=== PATIENT | female | born 1955 | race Hispanic/Latino ===

== ENCOUNTER 2017-11-01 22:25 | Emergency (ER) | payer BC, OTHER ==
[2017-11-01] MEDS ORDERED: TDAP Vaccine 0.5 mL Syr IM ONE (22:43)
--- NOTE | 2017-11-01 22:43 | ED PDOC ---
Arrival/HPI - General Time Seen by Provider: 11/01/17 22:31 Historian: Patient - History of Present Illness Narrative History of Present Illness (Text): 11/01/17 22:35 62 y/o female, pmh including foot fracture, nkda, last tetanus doesn't remember , c/o rt. elbow and lt. knee pain x 4 hours. Pt. stated that she tripped over the curb, landed on the lt. knee with abrasion and been having pain, landed on the rt. elbow as well with no skin injury, no head or neck injury, no LOC, able to recall the whole event, no night sweat, no rash, no urinary or bowel incontinence or retention, no other medical or psychological complaints. Past Medical History - Provider Review Nursing Documentation Reviewed: Yes - Infectious Disease Hx of Infectious Diseases: None - Cardiac Hx Cardiac Disorders: No - Pulmonary Hx Respiratory Disorders: No - Neurological Hx Neurological Disorder: No - HEENT Hx HEENT Disorder: No - Renal Hx Renal Disorder: No - Endocrine/Metabolic Hx Endocrine Disorders: No - Hematological/Oncological Hx Blood Disorders: No - Integumentary Hx Dermatological Disorder: No - Musculoskeletal/Rheumatological Hx Musculoskeletal Disorders: No - Gastrointestinal Hx Gastrointestinal Disorders: No - Genitourinary/Gynecological Hx Genitourinary Disorders: No - Psychiatric Hx Anxiety: Yes Hx Substance Use: No - Surgical History Hx Section: Yes - Anesthesia Hx Anesthesia: No Hx Anesthesia Reactions: No Hx Malignant Hyperthermia: No Family/Social History - Physician Review Nursing Documentation Reviewed: Yes Family/Social History: Unknown Family HX Smoking Status: Former Smoker Hx Alcohol Use: No Hx Substance Use: No Allergies/Home Meds Allergies/Adverse Reactions: Allergies No Known Allergies Allergy (Verified 11/01/17 22:38) Review of Systems - Review of Systems Constitutional: absent: Fatigue, Fevers Eyes: absent: Vision Changes ENT: absent: Hearing Changes Respiratory: absent: SOB, Cough Cardiovascular: absent: Chest Pain Gastrointestinal: absent: Abdominal Pain, Nausea, Vomiting Musculoskeletal: Arthralgias, Joint Swelling. absent: Back Pain, Neck Pain, Myalgias Skin: Other (+abrasion). absent: Rash, Pruritis, Laceration, Abscess, Ulcer, Cellulitis Physical Exam Vital Signs Reviewed: Yes Vital Signs Temp Pulse Resp BP Pulse Ox 11/01/17 22:39 98.6 F 88 18 156/88 H 100 Temperature: Afebrile Blood Pressure: Hypertensive Pulse: Regular Respiratory Rate: Normal Appearance: Positive for: Well-Appearing, Non-Toxic, Comfortable Pain Distress: Mild Mental Status: Positive for: Alert and Oriented X 3 - Systems Exam Head: Present: Atraumatic, Normocephalic Pupils: Present: PERRL Extroacular Muscles: Present: EOMI Conjunctiva: Present: Normal Mouth: Present: Moist Mucous Membranes Neck: Present: Normal Range of Motion, Trachea Midline. No: MIDLINE TENDERNESS , Paraspinal Tenderness, Lymphadenopathy Respiratory/Chest: Present: Clear to Auscultation, Good Air Exchange. No: Respiratory Distress, Accessory Muscle Use Cardiovascular: Present: Regular Rate and Rhythm, Normal S1, S2. No: Murmurs Abdomen: Present: Normal Bowel Sounds. No: Tenderness, Distention, Peritoneal Signs, Rebound, Guarding Back: Present: Normal Inspection Upper Extremity: Present: Normal Inspection, Other (Rt. elbow: +ttp on the radial head region, no swelling, skin intact, no laceration or abrasion, FROM without limitation, sensation intact, motor 5/5, +radial pulse, capillary refill < 2 seconds, neurovascular intact. ). No: Cyanosis, Edema Lower Extremity: Present: Normal Inspection, Other (Bilateral knee: +ttp and mild swelling to the lt. anterior knee, bilateral superficial abrasion approx. 2cm diameter noted on the knee joint, negative meghan and perez, FROM without limitation, sensation intact, motor 5/5. ). No: Edema Neurological: Present: GCS=15, CN II-XII Intact, Speech Normal Skin: Present: Warm, Dry, Normal Color. No: Rashes Psychiatric: Present: Alert, Oriented x 3, Normal Insight, Normal Concentration Medical Decision Making ED Course and Treatment: 11/01/17 22:53 -Xrays -Tdap -Pt. refused pain med -Wound irrigated with normal saline, clean with betadine, bacitracin and gauze dressing, dg wrap, crutches. 11/02/17 00:05 -Lt. knee xray show no fracture or dislocation -Rt. elbow xray show non-displaced fracture on the radial head and clinical it is tender on the radial head. -Long arm splint applied by me with neurovascular intact. -Discharge home with long arm splint, sling, dg wrap, crutches/cane , naproxen , bacitracin oinment, ice compression, follow up with your own pmd and orthopedic within 2 days, return to the ER for any new or worsening signs or symptoms. - RAD Interpretation Radiology Orders: 11/01/17 22:43 ELBOW RIGHT 3 VIEWS ROUTINE [RAD] Stat KNEE WITH PATELLA LEFT 3 VIEW [RAD] Stat Rt. elbow: FINDINGS: Bones/joints: Apparent lucency projected over radial head. No dislocation. Joint effusion. Soft tissues: Unremarkable. IMPRESSION: 1. Findings concerning for radial head fracture. Consider CT for confirmation. Thank you for allowing us to participate in the care of your patient. Dictated and Authenticated by: Bruno Brothers MD 11/01/2017 11:58 PM Eastern Time ([place] & [place]) Lt. knee xray: no acute fracture/dislocation, degenerative joint changes noted. 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 Disposition/Present on Arrival - Present on Arrival Any Indicators Present on Arrival: No History of DVT/PE: No History of Uncontrolled Diabetes: No Urinary Catheter: No History of Decub. Ulcer: No History Surgical Site Infection Following: None - Disposition Have Diagnosis and Disposition been Completed?: Yes Diagnosis: Abrasion, Knee injury, Elbow fracture Disposition: HOME/ ROUTINE Disposition Time: 22:55 Patient Plan: Discharge Condition: GOOD Additional Instructions: -Discharge home with dg wrap, crutches, naproxen, bacitracin oinment, ice compression, follow up with your own pmd and orthopedic within 2 days, return to the ER for any new or worsening signs or symptoms. Prescriptions: Bacitracin Ointment [Bacitracin] 1 appful TOP BID #15 g Naproxen 500 mg PO BID PRN #24 tablet PRN Reason: Other Referrals: Beverly Freeman MD [Staff Provider] - Follow up with primary [facility] [place] [Outside] - Follow up with primary Forms: WORK NOTE
[2017-11-01 22:46] VITALS: BP 156/88; PULSE 88; RESP 18; TEMP 98.6; O2SAT 100; BMI 28.1
--- NOTE | 2017-11-01 23:58 | RAD ---
EXAM: XR Right Elbow Complete, 3 or More Views CLINICAL HISTORY: 62 years old, female; Injury or trauma; Fall; Initial encounter; Abrasion; Elbow; Right; Additional info: Fall and rt. Elbow pain TECHNIQUE: Frontal, lateral and oblique views of the right elbow. COMPARISON: No relevant prior studies available. FINDINGS: Bones/joints: Apparent lucency projected over radial head. No dislocation. Joint effusion. Soft tissues: Unremarkable. IMPRESSION: 1. Findings concerning for radial head fracture. Consider CT for confirmation.
--- NOTE | 2017-11-02 08:56 | RAD ---
PROCEDURE: Left Knee Radiographs. HISTORY: Pain. COMPARISON: None. FINDINGS: BONES: There is diffuse bone demineralization. There is no acute displaced fracture or bone destruction. Bone alignment normal. JOINTS: There is mild tricompartmental degenerative osteoarthrosis with reduced joint spaces, marginal spurring and tibial spiking, worse in the medial compartment. JOINT EFFUSION: There is a small suprapatellar joint effusion. OTHER FINDINGS: None. IMPRESSION: No acute fracture or dislocation. Mild tricompartmental degenerative osteoarthrosis, worse in the medial compartment. Small suprapatellar joint effusion.
== END 2017-11-02 00:31 | disposition home or self-care (01) ==
LOC: ED 22:25
DX: S80.212A Abrasion, left knee, initial encounter (principal); S52.121A Displaced fracture of head of right radius, initial encounter for closed fracture; W01.0XXA Fall on same level from slipping, tripping and stumbling without subsequent striking against object, initial encounter; Y92.89 Other specified places as the place of occurrence of the external cause; Z23 Encounter for immunization